=== PATIENT | male | born 1985 | race Caucasian/White ===

== ENCOUNTER 2021-12-26 21:32 | Emergency (ER) | payer SELFPAY ==
[2021-12-26 21:35] VITALS: BP 116/72; PULSE 77; RESP 17; TEMP 37.1; O2SAT 97; BMI 31.6
--- NOTE | 2021-12-26 22:15 | XR_ITS ---
PROCEDURE INFORMATION: Exam: XR Chest Exam date and time: 12/26/2021 10:12 PM Age: 36 years old Clinical indication: Other: Chest pain TECHNIQUE: Imaging protocol: Radiologic exam of the chest. Views: 2 views. COMPARISON: No relevant prior studies available. FINDINGS: Lungs: Mild hypoventilation/low lung volumes on this exam with slight central bronchovascular crowding. No focal consolidation. Pleural spaces: Unremarkable. No significant pleural effusion. No pneumothorax. Heart/Mediastinum: Cardiac silhouette appears within upper limits normal. Small left pericardial fat pad. Bones/joints: Mild spinal degenerative changes, disc narrowing and spondylosis. No definite acute fractures. IMPRESSION: No acute findings.
--- NOTE | 2021-12-26 22:16 | ECG_ITS ---
APPROVED REPORT Exam: Resting ECG HR:71 bpm ECG Measurements Heart Rate 71 AXES MA 163 P 42 QRSd 102 QRS 26 QT 376 T 34 QTc 398 Conclusion SINUS RHYTHM POSSIBLE RIGHT VENTRICULAR CONDUCTION DELAY [RSR (QR) IN V1/V2] BORDERLINE ECG UNCONFIRMED REPORT Electronically signed by : Matheus Cowan MD 12/30/2021 09:54:45
[2021-12-26 22:25] LABS: Coronavirus 19, PCR Not Detected (NotDetected); Influenza A, PCR Not Detected (NotDetected); Influenza B, PCR Not Detected (NotDetected)
[2021-12-26 22:51] LABS: Strep Scrn Group A (Rapid) Negative (Negative)
--- NOTE | 2021-12-26 23:11 | [facility].EDGENADL ---
Discharge Plan Disposition Patient Disposition: Home, Self-Care Condition: Good Prescriptions Prescriptions: New cetirizine 10 mg tablet 10 mg PO DAILY PRN (Reason: allergy symptoms) Qty: 7 0RF amoxicillin-pot clavulanate 875-125 mg tablet 1 tab PO BID Qty: 20 0RF Referrals Follow up/Referrals: Provider,Referral, [Primary Care Provider] - See instructions Activity Restrictions/Add. Instructions Additional Instructions/Restrictions: You have been evaluated for congestion, diagnosed with a sinus infection. Please take antibiotics as prescribed. Take daily cetirizine. It is okay to take an [id number] cough or cold decongestant. Follow-up with your primary care doctor in 1 to 2 days for symptom recheck. Return to the emergency department at once for any new or worsening symptoms, chest pain, difficulty breathing, other concerns Clinical Impressions Clinical Impression: Sinus infection Instructions Patient Instructions: DI for Sinusitis Discharge ED Provider: Laurel Hope Adult HPI General Chief complaint: Upper Respiratory Infection Stated complaint: SOB,congestion Time Seen by Provider: 12/26/21 22:00 Mode of Arrival: Ambulatory Source of Information: Patient Limitations: Language Barrier Description of Symptoms (Recalled from ER Triage Doc. by RN): PT HAS HAD COUGH AND CONGESTION X 3 WEEKS. PT REPORTS THAT HE HAD BEEN TAKING SOME MEDICATIONS FROM [place] BUT HAS RUN OUT AND DOES NOT KNOW WHAT TO TAKE HERE. PT REPORTS HIS NOSE IS MORE STUFFY AT NIGHT WHEN HE LAYS DOWN AND HE HAS A SLIGHT COUGH. History of Present Illness HPI narrative: 36-year-old male presenting to the emergency department with sinus congestion, runny nose, cough. He has had runny nose, significant drainage for the last 3 weeks. It has gotten worse over the last few days. He is unable to sleep at night, due to significant congestion and difficulty breathing. He has tried taking a medicine he had leftover from [place]. No recent antibiotics, decongestants, steroids. Slight cough. No particular shortness of breath. No history of allergies. No chest pain, abdominal pain, neck pain, fevers, chills. History obtained with live video parts interpreter. Related Data Previous Rx's Medication Instructions Recorded amoxicillin 875 mg-potassium 1 tab PO BID #20 tabs 12/26/21 clavulanate 125 mg tablet cetirizine 10 mg tablet 10 mg PO DAILY PRN allergy 12/26/21 symptoms #7 tabs Allergies Allergy/AdvReac Type Severity Reaction Status Date / Time No Known Allergies Allergy Verified 12/26/21 22:14 PFSH PFS Social History Smoking Status: Never smoker ROS Obtained: Yes All systems reviewed & no additional complaints except as documented Constitutional Constitutional: Reports fatigue, Denies fever(s) and Reports malaise Eyes Eyes: Denies blurry vision and Denies loss of vision ENT Ears, Nose, Mouth, and Throat: Denies dizziness, Denies otalgia, Denies neck pain, Reports post nasal drip, Reports sinus pain, Reports sinus pressure and Denies throat swelling Cardiovascular Cardiovascular: Denies chest pain, Denies dyspnea and Denies palpitations Respiratory Respiratory: Reports chest congestion, Denies cough, Denies dyspnea and Denies wheezing Gastrointestinal Gastrointestingal: Denies abdominal pain, nausea or vomiting Musculoskeletal Musculoskeletal: Denies back pain, Denies neck pain and Denies numbness Integumentary/Breasts Skin/Breast: Denies rash Neurologic Neurologic: Denies dizziness, Denies loss of vision and Denies numbness Endocrine Endocrine: Reports fatigue and Denies palpitations Allergic/Immunologic Allergic/Immunologic: Denies throat swelling and Denies wheezing Physical Exam General General appearance: alert and in no apparent distress Head Head exam: atraumatic and normocephalic Eye Eye exam: Present normal appearance and EOMI; Absent scleral icterus ENT ENT exam: Present norm
[2021-12-26 23:36] VITALS: BP 121/71; PULSE 84; RESP 16; TEMP 37.1; O2SAT 98
== END 2021-12-26 23:37 | disposition home or self-care (01) ==
PROVIDERS: Emergency Provider Emergency Medicine
DX: J01.90 Acute sinusitis, unspecified (principal)
CPT/HCPCS: 71046; 87430; 93005; 99284; C9803; U0003; U0005